=== PATIENT | male | born 1955 | race Caucasian/White ===

== ENCOUNTER 2021-11-27 15:40 | Emergency (ER) | payer OTHER ==
[2021-11-27] MEDS ORDERED: Sodium Chloride 0.9% 10 ML Syringe FLUSH PRN (17:43)
[2021-11-27] MEDS ORDERED: Sodium Chloride 0.9% 1,000 ML IV ONE (17:46)
[2021-11-27] MEDS ORDERED: Ondansetron 4 MG/2 ML SDV IV ONE (17:46)
[2021-11-27] MEDS ORDERED: HYDROmorphone 1 MG/ML Syringe IVPUSH ONE (17:47)
[2021-11-27] MEDS ORDERED: Iopamidol 612 MG/ML 100 ML Bottle IVPUSH ONE (18:03)
[2021-11-27 18:07] LABS: ANION GAP 13.1 mEq/L (7-13); CHLORIDE,CL 103 mmol/L (98-107); SODIUM,NA 138 mmol/L (136-145)
== END 2021-11-27 19:58 | disposition home or self-care (01) ==
LOC: DL.ED 15:40
DX: K40.90 Unilateral inguinal hernia, without obstruction or gangrene, not specified as recurrent (principal)
CPT/HCPCS: 36415; 74177; 80053; 81001; 82150; 83605; 83690; 85025; 86140; 96374; 96375; 99284; J1170; J2405; J3490; J7030; Q9967

== ENCOUNTER 2021-12-22 05:12 | Emergency (ER) | payer OTHER ==
[2021-12-22] MEDS ORDERED: Ketorolac 30 MG/ML SDV IM ONE (05:45)
[2021-12-22] MEDS ORDERED: Cyclobenzaprine 10 MG Tab PO ONE (05:45)
== END 2021-12-22 06:36 | disposition home or self-care (01) ==
LOC: DL.ED 05:12
DX: M62.838 Other muscle spasm (principal); F17.210 Nicotine dependence, cigarettes, uncomplicated; Z86.16 Personal history of COVID-19
CPT/HCPCS: 96372; 99283; A9270; J1885

== ENCOUNTER 2021-12-29 14:09 | Emergency (ER) | payer OTHER | END 2021-12-29 16:33 | disposition home or self-care (01) | LOC: DL.ED 14:09 | DX: K40.90 Unilateral inguinal hernia, without obstruction or gangrene, not specified as recurrent (principal); F17.210 Nicotine dependence, cigarettes, uncomplicated; Z86.16 Personal history of COVID-19 | CPT/HCPCS: 99282; 99283 ==

== ENCOUNTER 2021-12-29 22:45 | Emergency (ER) | payer OTHER | END 2021-12-30 00:24 | disposition left against medical advice (07) | LOC: DL.ED 22:45 | DX: Z53.21 Procedure and treatment not carried out due to patient leaving prior to being seen by health care provider (principal) ==